=== PATIENT | female | born 1950 | race Caucasian/White ===

== ENCOUNTER 2018-07-06 14:44 | Emergency (ER) | payer OTHER, BC ==
[2018-07-06 14:53] VITALS: BP 122/68; PULSE 67; TEMP 98.9; BMI 25.7
--- NOTE | 2018-07-06 15:28 | PDOC ---
History of Present Illness - General History Source: Patient Exam Limitations: No Limitations - History of Present Illness Initial Comments: 07/06/18 15:28 The patient is a 68 YOF with no significant PMH who presents to the ER with a small laceration to the right index finger at 12PM today. Patient states she was putting together a metal shelving unit when she accidently injured herself on a sharp edge. Patient denies any possibility of foreign objects entering the laceration. Patients last tetanus was in 2014. The laceration is not actively bleeding here in the ER. Denies any numbness, tingling, weakness, redness or swelling to the area. Allergies: NKA Past surgical history: None reported. Social history: No reported alcohol, drug or cigarette use. <Geraldine Mariano - Last Filed: 07/06/18 15:38> <Emmanuel Brock - Last Filed: 07/06/18 15:51> - General Chief Complaint: Injury Stated Complaint: RT 2ND FINGER LACERATION Time Seen by Provider: 07/06/18 15:14 Past History <Geraldine Mariano - Last Filed: 07/06/18 15:38> - Past Medical History COPD: No - Immunization History Immunization Up to Date: Yes - Suicide/Smoking/Psychosocial Hx Smoking History: Never smoked Have you smoked in the past 12 months: No Information on smoking cessation initiated: No Hx Alcohol Use: No Drug/Substance Use Hx: No <Emmanuel Brock - Last Filed: 07/06/18 15:51> - Past Medical History Allergies/Adverse Reactions: Allergies Allergy/AdvReac Type Severity Reaction Status Date / Time No Known Allergies Allergy Verified 07/06/18 14:45 Home Medications: Ambulatory Orders NK [No Known Home Medication] 07/06/18 Review of Systems - Review of Systems Able to Perform ROS?: Yes Comments:: 07/06/18 15:38 REVIEW OF SYSTEMS: GENERAL/CONSTITUTIONAL: No fever or chills. No weakness. No weight change. HEAD, EYES, EARS, NOSE AND THROAT: No change in vision. No ear pain or discharge. No sore throat. CARDIOVASCULAR: No chest pain or shortness of breath. RESPIRATORY: No cough, wheezing, or hemoptysis. GASTROINTESTINAL: No nausea and vomiting. No diarrhea. No prior abdominal surgery. GENITOURINARY: No dysuria, frequency, or change in urination. MUSCULOSKELETAL: No joint or muscle swelling or pain. No neck or back pain. SKIN AND BREASTS: No rash or easy bruising. (+) Small laceration to the right index finger. NEUROLOGIC: No headache, vertigo, loss of consciousness, or loss of sensation. PSYCHIATRIC: No depression or anxiety. ENDOCRINE: No increased thirst. No abnormal weight change. HEMATOLOGIC/LYMPHATIC: No anemia, easy bleeding, or history of blood clots. ALLERGIC/IMMUNOLOGIC: No hives or skin allergy. No latex allergy. <Geraldine Mariano - Last Filed: 07/06/18 15:38> *Physical Exam - Vital Signs Last Vital Signs Temp Pulse Resp BP Pulse Ox 98.9 F 67 20 122/68 99 07/06/18 14:44 07/06/18 14:44 07/06/18 14:44 07/06/18 14:44 07/06/18 14:44 <Geraldine Mariano - Last Filed: 07/06/18 15:38> - Vital Signs Last Vital Signs Temp Pulse Resp BP Pulse Ox 98.9 F 67 20 122/68 99 07/06/18 14:44 07/06/18 14:44 07/06/18 14:44 07/06/18 14:44 07/06/18 14:44 - Physical Exam Comments: 07/06/18 15:24 GENERAL: The patient is awake, alert, and fully oriented, in no acute distress. HEAD: Normal with no signs of trauma. EYES: Pupils equal, round and reactive to light, extraocular movements intact, sclera anicteric, conjunctiva clear. EXTREMITIES: Right index finger with a 1 cm laceration along the radial aspect overlying the proximal phalanx. Partial-thickness laceration, no deep structures exposed. Normal neurovascular exam, normal tendons, normal sensation. NEUROLOGICAL: Normal speech, normal gait. PSYCH: Normal mood, normal affect. SKIN: Warm, Dry, normal turgor, no rashes or lesions noted other than the laceration on the right index finger. <Emmanuel Brock - Last Filed: 07/06/18 15:51> Medical Decision Making - Medical Decision Making 07/06/18 15:25 68-year-old female was installing a metal shelf when she cut her right index finger a few hours ago. On examination there is a superficial laceration approximately 1 cm in length along the radial aspect of the right index finger overlying the proximal phalanx. Neurovascular examination is intact. The wound was irrigated with saline and cleansed with saline gauze. Bacitracin ointment was applied with a bandage. Patient's tetanus booster is up-to-date, last booster with TDaP was 4 years ago. <Emmanuel Brock - Last Filed: 07/06/18 15:51> *DC/Admit/Observation/Transfer - Attestations Scribe Attestion: 07/06/18 15:39 Documentation prepared by Geraldine Mariano, acting as medical records secretary for Emmanuel Brock MD. <Geraldine Mariano - Last Filed: 07/06/18 15:38> - Discharge Dispostion Decision to Admit order: No - Attestations Physician Attestion: 07/06/18 15:50 The scribe's documentation has been prepared under my direction and personally reviewed by me in its entirety. I have confirmed that the note above accurately reflects all work, treatment, procedures, and medical decision- making performed by me. <Emmanuel Brock - Last Filed: 07/06/18 15:51> Diagnosis at time of Disposition: Laceration of right index finger Qualifiers: Encounter type: initial encounter Damage to nail status: without damage Foreign body presence: without foreign body Qualified Code(s): S61.210A - Laceration without foreign body of right index finger without damage to nail, initial encounter - Discharge Dispostion Disposition: HOME Condition at time of disposition: Stable - Patient Instructions Printed Discharge Instructions: DI for Laceration Repair -- Finger Additional Instructions: You were evaluated today for a minor laceration of the right index finger. No stitches were indicated. The wound was cleansed with saline irrigation, bacitracin antibiotic ointment was applied with a Band-Aid. Change the dressing once a day. It is okay to shower. After showering, dry the area, apply a thin layer of bacitracin antibiotic ointment, and then protect it with a Band-Aid. No tenderness for one week. Watch for any signs of infection such as redness, swelling, pus or red streaks. Follow-up with her primary care physician or return to the emergency department for any serious symptoms.
== END 2018-07-06 15:50 | disposition home or self-care (01) ==
LOC: FER 14:44
DX: S61.210A Laceration without foreign body of right index finger without damage to nail, initial encounter (principal); W26.8XXA Contact with other sharp object(s), not elsewhere classified, initial encounter; Y93.89 Activity, other specified; Y92.009 Unspecified place in unspecified non-institutional (private) residence as the place of occurrence of the external cause
CPT/HCPCS: 99281-25